=== PATIENT | male | born 1995 | race Hispanic/Latino ===

== ENCOUNTER 2017-09-01 12:46 | Emergency (ER) | payer OTHER, SELFPAY ==
[~2017-09-01 12:46] MED LIST: ISOVUE-370 76%-LOCM 1 ML ONE
[2017-09-01] MEDS ORDERED: Diprivan 20 ML ONE (12:57)
[2017-09-01 13:35] LABS: Hemoglobin 14.1 g/dL (14.0-18.0); Mean Corpuscular HGB CONC 33.2 g/dL (32.0-36.0); Mean Corpuscular Hemoglobin 30.1 pg (25.0-35.0); Mean Corpuscular Volume 90.8 fl (77.0-87.0); Mean Platelet Volume 6.7 fL (7.4-10.4); Platelet Count 332 thou/uL (130-400); RBC Distribution Width 11.4 % (11.5-14.5); Red Blood Cell (RBC) Count 4.67 mill/uL (4.00-5.20); White Blood Cell (WBC) Count 20.4 thou/uL (4.8-10.8)
[2017-09-01 13:39] LABS: INR-International Normal Ratio 1.2; PTT 27.2 SEC (22.9-36.1); Prothrombin Time 15.1 SEC (12.0-14.7)
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
[2017-09-01 13:50] LABS: Band 4 % (5-11); Lymphocytes 9 % (28-48); MDiff Complete? YES; Monocytes 3 % (0-4); Neutrophil 82 % (31-61); PLT Morphology Comment Appears Adequate; RBC Morphology Normal; Reactive Lymphocytes 2 % (0-10)
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
[2017-09-01 14:00] LABS: ALT (SGPT) 31 U/L (8-55); AST (SGOT) 21 U/L (10-45); Alcohol Less than 10 mg/dL (Less than 10); Alkaline Phosphatase 79 U/L (Less than 750); Anion Gap 9 mmol/L (10-20); BUN (Urea Nitrogen) 10 mg/dL (8.4-21.0); Bilirubin, Total 0.6 mg/dL (0.2-1.2); Calc. Creatinine Clearance 0 mL/min (70-130); Calcium 8.8 mg/dL (7.8-10.44); Carbon Dioxide 27 mmol/L (22-29); Chloride 101 mmol/L (98-107); Estimated GFR-MDRD Greater than 90; Globulin 2.5 g/dL (2.4-3.5); Glucose 165 mg/dL (70-105); Lipase 15 U/L (8-78); Potassium 4.3 mmol/L (3.5-5.1); Protein, Total 6.5 g/dL (6.0-8.3); Sodium 133 mmol/L (136-145)
== END 2017-09-01 14:51 | disposition home or self-care (01) ==
LOC: ERS 12:46
DX: S73.035A Other anterior dislocation of left hip, initial encounter (principal); S96.912A Strain of unspecified muscle and tendon at ankle and foot level, left foot, initial encounter; F17.210 Nicotine dependence, cigarettes, uncomplicated; V89.2XXA Person injured in unspecified motor-vehicle accident, traffic, initial encounter
CPT/HCPCS: 27250; 70450; 71045; 71260; 72125; 72170; 74177; 80053; 80307; 83690; 85025; 85610; 85730; 86850; 86900; 86901; 96360; G0390; J2704